=== PATIENT | female | born 1990 | race Caucasian/White ===

== ENCOUNTER 2017-10-28 11:00 | Emergency (ER) | payer MEDICARE, MEDICAID ==
--- NOTE | 2017-10-28 11:40 | EDM.PDOCBH ---
ED HPI GENERAL MEDICAL PROBLEM - General Chief Complaint: Behavioral/Psych Stated Complaint: EVAL Time Seen by Provider: 10/28/17 11:25 Source of Information: Reports: Patient, Old Records, Police, RN History Limitations: Reports: No Limitations - History of Present Illness INITIAL COMMENTS - FREE TEXT/NARRATIVE: 27 yo female with a pHx of mental health issues who is from [place] was brought in by police this morning to be check out. She was supposed to be in contact with her outreach and education social worker and had not been seen or heard from in about a month. Is not happy to be here. She says she has not been having any troubles. Police caught up with her at her ex boyfriend's home today locally. Onset: Unknown/Unsure Duration: Other (uncertain.) Quality: Reports: Other (has no complaints) Severity: Mild Context: Reports: Other (Has not been in contact with her mental health contacts or outreach and education social worker) Associated Symptoms: Reports: No Other Symptoms Treatments TIMBER BUCKER: Reports: Other (see below) (None) - Related Data Allergies Allergy/AdvReac Type Severity Reaction Status Date / Time Penicillins Allergy Other Verified 10/28/17 11:16 Sulfa (Sulfonamide Allergy Other Verified 10/28/17 11:16 Antibiotics) Home Meds: Home Meds . [Unable to Verify Home Med List] 07/14/16 [History] Past Medical History Psychiatric History: Reports: Mood Swings, Psych Hospitalization(s), Schizophrenia Social & Family History - Tobacco Use Smoking Status *Q: Current Every Day Smoker Years of Tobacco use: 12 Packs/Tins Daily: 0.5 - Caffeine Use Caffeine Use: Reports: Coffee, Soda - Recreational Drug Use Recreational Drug Use: No ED ROS GENERAL - Review of Systems Review Of Systems: See Below Constitutional: Reports: No Symptoms HEENT: Reports: No Symptoms Respiratory: Reports: No Symptoms Cardiovascular: Reports: No Symptoms Endocrine: Reports: No Symptoms GI/Abdominal: Reports: No Symptoms : Reports: No Symptoms Musculoskeletal: Reports: No Symptoms Skin: Reports: No Symptoms Neurological: Reports: No Symptoms Psychiatric: Reports: No Symptoms ED EXAM, BEHAVIORAL HEALTH - Physical Exam Exam: See Below Exam Limited By: No Limitations General Appearance: Alert, WD/WN, No Apparent Distress Eye Exam: Bilateral Eye: Normal Inspection Ears: Normal External Exam, Normal Canal, Hearing Grossly Normal, Normal TMs Nose: Normal Inspection, Normal Mucosa, No Blood Throat/Mouth: Normal Inspection, Normal Lips, Normal Teeth, Normal Oropharynx, Normal Voice, No Airway Compromise Head: Atraumatic, Normocephalic Neck: Normal Inspection, Supple, Non-Tender Respiratory/Chest: No Respiratory Distress, Lungs Clear, Normal Breath Sounds, No Accessory Muscle Use Cardiovascular: Regular Rate, Rhythm, No Edema GI/Abdominal: Normal Bowel Sounds, Soft, Non-Tender Back Exam: Normal Inspection. No: CVA Tenderness (R), CVA Tenderness (L) Extremities: Normal Inspection, Normal Range of Motion, Non-Tender, No Pedal Edema Neurological: Alert, Normal Mood/Affect, CN II-XII Intact, Normal Cognition, No Motor/Sensory Deficits, Oriented x 3 Psychiatric: Alert, Normal Affect, Normal Cognition, Normal Mood, Oriented, Other (Unhappy to be here.) Skin Exam: Warm, Dry, Intact, Normal color, No rash, Other (tattoos present.) COURSE, BEHAVIORAL HEALTH COMP - Course Vital Signs: Last Vital Signs Temp 36.2 C 10/28/17 11:36 Pulse 89 10/28/17 11:36 Resp 18 10/28/17 11:36 BP 144/91 H 10/28/17 11:36 Pulse Ox 98 10/28/17 11:36 Orders, Labs, Meds: Laboratory Tests 10/28/17 Range/Units 11:42 Urine Opiates Screen Negative (NEGATIVE) Ur Oxycodone Screen Negative (NEGATIVE) Urine Methadone Screen Negative (NEGATIVE) Ur Propoxyphene Screen Negative (NEGATIVE) Ur Barbiturates Screen Negative (NEGATIVE) Ur Tricyclics Screen Negative (NEGATIVE) Ur Phencyclidine Scrn Negative (NEGATIVE) Ur Amphetamine Screen Positive H (NEGATIVE) U Methamphetamines Scrn Positive H (NEGATIVE) Urine MDMA Screen Negative (NEGATIVE) U Benzodiazepines Scrn Negative (NEGATIVE) U Cocaine Metab Screen Negative (NEGATIVE) U Marijuana (THC) Screen Positive H (NEGATIVE) Departure - Departure Time of Disposition: 13:17 Disposition: Home, Self-Care 01 Condition: Good Clinical Impression: Methamphetamine abuse, Marijuana abuse, Tobacco abuse - Discharge Information Referrals: PCP,None [Primary Care Provider] - Forms: ED Department Discharge Additional Instructions: Continue your current prescription meds. F/U with your providers as directed. Know that continued use of illegal drugs very likely will result in loss of your freedoms.
== END 2017-10-28 13:25 | disposition home or self-care (01) ==
LOC: JP.ED 11:00
DX: F15.10 Other stimulant abuse, uncomplicated (principal); F12.10 Cannabis abuse, uncomplicated; F17.210 Nicotine dependence, cigarettes, uncomplicated; Z88.0 Allergy status to penicillin; Z88.2 Allergy status to sulfonamides
CPT/HCPCS: 80305; 99283; 99285

== ENCOUNTER 2023-11-21 13:52 | Emergency (ER) | payer MEDICARE, MEDICAID ==
[2023-11-21] MEDS ORDERED: Diazepam 2 MG Tab PO PRN (14:21)
[2023-11-21 14:23] LABS: BASOPHILS PERCENT AUTO 0.4 % (0.1-1.3); EOSINOPHILS ABSOLUTE AUTO 0.08 K/uL (0.00-0.40); EOSINOPHILS PERCENT AUTO 1.7 % (0.0-5.4); HEMATOCRIT 47.2 % (34.3-46.0); HEMOGLOBIN 16.4 g/dL (11.2-15.5); IMMATURE GRAN PERCENT AUTO 0.2 % (0.0-0.7); LYMPHOCYTES ABSOLUTE AUTO 1.97 K/uL (0.8-3.3); MEAN CORPUSCULAR HEMOGLOBIN 32.4 pg (31.6-35.5); MEAN CORPUSCULAR HGB CONC 34.7 g/dL (31.6-35.5); MEAN CORPUSCULAR VOLUME 93.3 fL (81.4-99.0); MONOCYTES ABSOLUTE AUTO 0.39 K/uL (0.20-0.90); MONOCYTES PERCENT AUTO 8.1 % (3.3-12.6); NEUTROPHILS ABSOLUTE AUTO 2.34 K/uL (1.0-7.6); NEUTROPHILS PERCENT AUTO 48.6 % (40.0-78.1); PLATELET COUNT,PLT 291 K/uL (130-375); RED BLOOD CELL COUNT 5.06 M/uL (3.77-5.24); WHITE BLOOD CELL COUNT,WBC 4.8 K/uL (3.2-11.0)
[2023-11-21 14:31] LABS: BASOPHILS ABSOLUTE AUTO 0.02 K/uL (0.00-0.10); IMMATURE GRAN ABSOLUTE AUTO 0.01 K/uL (0.00-0.23)
[2023-11-21 15:10] LABS: A/G RATIO 1.1 (1.2-2.2); ALANINE AMINOTRANSFERASE,ALT 26 U/L (12-78); ALBUMIN 3.7 g/dL (3.4-5.0); ALKALINE PHOSPHATASE 52 U/L (46-116); ASPARTATE AMNIOTRANSFERASE,AST 17 U/L (15-37); BILIRUBIN TOTAL 0.2 mg/dL (0.2-1.0); BLOOD UREA NITROGEN,BUN 3 mg/dL (7-18); CALCIUM 8.5 mg/dL (8.5-10.1); CARBON DIOXIDE,CO2 29 mmol/L (21-32); CHLORIDE,CL 101 mmol/L (100-108); EST CRCL DRUG DOSING (CG) 68.52 mL/min; ESTIMATED GFR 75 mL/min (>60); GLUCOSE RANDOM 143 mg/dL (74-106); SODIUM,NA 138 mmol/L (140-148); TSH ULTRASENSITIVE 1.435 uIU/mL (0.358-3.740)
[2023-11-21 15:14] LABS: ANION GAP 10.7 mmol/L (5.0-14.0); POTASSIUM,K 2.7 mmol/L (3.6-5.2)
[2023-11-21 15:15] LABS: AMPHETAMINES SCREEN, URINE NEGATIVE (NEGATIVE); BARBITURATE SCREEN,URINE NEGATIVE (NEGATIVE); BENZODIAZEPINES SCREEN,URINE PRESUMPTIVE POSITIVE (NEGATIVE); METHADONE SCREEN, URINE NEGATIVE (NEGATIVE); METHAMPHETAMINES SCREEN, URINE NEGATIVE (NEGATIVE); OXYCODONE SCREEN,URINE NEGATIVE (NEGATIVE); PROPOXYPHENE SCREEN,URINE NEGATIVE (NEGATIVE); THC SCREEN,URINE 50 NG/ML NEGATIVE (NEGATIVE)
[2023-11-21] MEDS: Diazepam 5 MG Tab PO PRN (15:45)
[2023-11-21] MEDS: Potassium Chloride 20 MEQ Tab.ER PO ONE (15:45)
[2023-11-21] MEDS: Nicotine 21 MG/24 Hr Patch TRDERM SCH (15:45)
[2023-11-21] MEDS ORDERED: Nicotine Polacrilex 2 MG Gum CHEW PRN (18:31)
[2023-11-21] MEDS: Prazosin 1 MG Cap PO SCH (20:18)
[2023-11-21] MEDS: Ziprasidone HCl 20 MG Cap PO SCH (20:18)
[2023-11-21] MEDS: cloNIDine 0.1 MG Tab PO SCH (20:21)
[2023-11-22] MEDS: buPROPion 150 MG Tab.SR PO SCH (09:28)
[2023-11-22] MEDS: Potassium Chloride 20 MEQ Tab.ER PO SCH (09:28)
== END 2023-11-22 17:26 | disposition home or self-care (01) ==
LOC: JP.ED 13:52
DX: F41.1 Generalized anxiety disorder (principal); F25.0 Schizoaffective disorder, bipolar type; F15.10 Other stimulant abuse, uncomplicated; F12.10 Cannabis abuse, uncomplicated; R45.1 Restlessness and agitation; F91.9 Conduct disorder, unspecified; E87.6 Hypokalemia; F17.200 Nicotine dependence, unspecified, uncomplicated; Z79.899 Other long term (current) drug therapy; Z88.0 Allergy status to penicillin; Z88.2 Allergy status to sulfonamides
CPT/HCPCS: 36415; 80053; 80305; 80307; 83735; 84443; 84703; 85025; 93005; 93010; 99284; 99285; A9270; U0002